=== PATIENT | female | born 1955 | race Caucasian/White ===

== ENCOUNTER → 2017-02-14 | Outpatient (CLI) | payer OTHER, BC ==
--- NOTE | 2017-02-14 16:13 | Diagnostic Imaging Report ---
PROCEDURE: CT lumbar spine without contrast. TECHNIQUE: Multiple contiguous axial images were obtained through the lumbar spine without the use of intravenous contrast. Sagittal and coronal reformations were then performed. INDICATION: Back pain. FINDINGS: There is pre-existing grade 1 spondylolisthesis of L3 over L4 seen. At this level, there is evidence of prior anterior fusion with plate and screws running transversely through the vertebral bodies with the connecting plate at the left side of the vertebral body. There is also posterior transpedicular fusion hardware seen at this level on the left side. There is suggestion of previous injury with nonunion of right L3 pars fracture. There is also an ununited fracture of the left lamina of L3 with an osseous fragment seen along the posterior aspect of the spinal canal measuring 1.3 cm in length and 1 cm craniocaudally and is 0.2 cm in width. This is located deep to the ligamentum flavum on the left side. Ununited fracture of the left pars is also suggested. There is solid osseous fusion of the left L3/4 facet joint. There is also suggestion of some osseous bridging along the vertebral bodies at this level, although the intervertebral plane largely demonstrates no osseous bridging. There is no fusion of the posterior elements on the right side. There is an old compression fracture of L1 vertebral body. No acute fracture is identified. There is grossly no compromise of the spinal canal or neural foramina at any level. There is a concurrent MRI which can better evaluate the thecal sac and the exiting nerves and the foramina. IMPRESSION: 1. 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 2. There is posterior fusion hardware through the left pedicles of L3/4 with solid fusion of the left L3/4 facet joint. 3. There is a disc spacer seen with some osseous bridging suggested between the L3 and L4 vertebral bodies with underlying grade 1 spondylolisthesis at this level. Dictated by: Dictated on workstation # [id number]
--- NOTE | 2017-02-14 16:35 | Diagnostic Imaging Report ---
PROCEDURE: MRI lumbar spine. TECHNIQUE: Multiplanar, multisequence MRI of the lumbar spine was performed without contrast. INDICATION: Back pain. FINDINGS: There is grade 1 spondylolisthesis of L3 over L4. There is susceptibility artifact related to posterior fusion transpedicular screws and connecting gibran along the left posterior elements of L3 and L4 and also fusion hardware with screws and plate through the vertebral bodies of L3 and L4 inserted from a left lateral approach. There is an old fracture depressing the superior endplate of L1 vertebral body with 33% vertebral body height loss with no acute component or marrow edema seen. There is also mild old compression fracture involving T11 and minimally old compression fracture of T12 vertebral bodies. There is disc desiccation at all levels. The cauda equina and conus medullaris appear grossly unremarkable. T12/L1: There is a diffuse disc bulge with no spinal canal or foraminal stenosis. L1/2: No disc herniation. There is mild facet hypertrophy. No spinal canal or foraminal stenosis. L2/3: There is a minimal disc bulge. There is mild facet hypertrophy. No central canal or lateral recess stenosis. There is mild foraminal narrowing on the left side and patent foramen on the right. L3/4: Spondylolisthesis at this level is seen. There is better delineation of ununited fractures of the posterior elements of L3 level on concurrent CT scan. This is not well delineated on MRI; however, this appears to result in irregularity along the contour of the spinal canal, particularly at the left L3 lamina level. The thecal sac is widely patent, however, with no central canal or lateral recess stenosis. The foramina demonstrate mild stenosis on the right side and no significant stenosis on the left. L4/5: No disc herniation. There is mild facet hypertrophy. No central canal stenosis. There is mild narrowing of the lateral recess bilaterally. There is bilateral [id number] narrowing of the foramina as well. L5/S1: No disc herniation. There is heuz-io-clucegoc facet hypertrophy. No central canal stenosis. There is mild narrowing of the lateral recess bilaterally. No foraminal stenosis of significance is seen. IMPRESSION: Findings suggestive of old injury with vertebral body and left facet joint effusion at the L3/4 level. There is no central canal stenosis at any level. There is [id number] foraminal stenosis at L4/5 and mild foraminal stenosis on the right side at L3/4 level. Dictated by: Dictated on workstation # [id number]
== END ==
LOC: RAD 13:03
PROVIDERS: ATTEND Orthopaedic Surgery Orthopaedic Surgery of the Spine
DX: S32.048 Other fracture of fourth lumbar vertebra (principal); S32.038 Other fracture of third lumbar vertebra; M43.16 Spondylolisthesis, lumbar region; Z98.1 Arthrodesis status; X58.XXXD Exposure to other specified factors, subsequent encounter; Y99.8 Other external cause status
CPT/HCPCS: 72131; 72148

== ENCOUNTER → 2017-03-30 | Outpatient (CLI) | payer BC, OTHER ==
--- NOTE | 2017-03-30 20:57 | Diagnostic Imaging Report ---
EXAMINATION: PA chest at 1:54 p.m. INDICATION: Pneumonia. COMPARISON: There are no prior studies available for comparison. FINDINGS: The heart size is within normal limits. There are coarse perihilar markings bilaterally. I suspect that these are chronic in nature. If previous studies are available, they would be helpful for comparison. There is no sign of failure, pneumonia, or pleural effusion to suggest an acute abnormality. The mediastinum is not widened. The osseous structures are intact. There is orthopedic hardware overlying the upper lumbar spine. There are also two orthopedic fixation screws overlying the left humeral head. IMPRESSION: 1. The coarse perihilar markings are most likely chronic in nature. If previous studies are available, they would be helpful for comparison. 2. There is no acute cardiopulmonary abnormality noted. Dictated by: Dictated on workstation # [id number]
== END ==
LOC: RAD 13:26
PROVIDERS: ATTEND Orthopaedic Surgery Orthopaedic Surgery of the Spine
DX: R05 Cough (principal)
CPT/HCPCS: 71010